=== PATIENT | male | born 1990 | race Caucasian/White ===

== ENCOUNTER 2016-09-23 15:09 | Emergency (ER) | payer MEDICAID ==
[~2016-09-23] VITALS: Ht 175.3 cm; Wt 72.6 kg
--- NOTE | 2016-09-23 15:56 | NUR ---
PATIENT ARRIVED VIA AMBULANCE WAS AWAKE AND ALERT, C/O OF NUMBNESS TO LIPS, TRIAGED TO LOBBY AWAITING FORMAL TRIAGE.
--- NOTE | 2016-09-23 16:06 | NUR ---
NO ANSWER OUT IN ER LOBBY---
--- NOTE | 2016-09-23 16:13 | NUR ---
PATIENT CALLED FROM LOBBY NO ANSWER.
[2016-09-23 16:35] VITALS: BP 126/65
--- NOTE | 2016-09-23 19:41 | NUR ---
PATIENT LEFT WITHOUT BEING SEEN BY . NO FURTHER CARE PROVIDED FOR PATIENT.
== END 2016-09-23 19:41 | disposition left against medical advice (07) ==
LOC: MED 15:09
DX: R53.83 Other fatigue (principal); Z53.21 Procedure and treatment not carried out due to patient leaving prior to being seen by health care provider